=== PATIENT | male | born 1955 | race Caucasian/White ===

== ENCOUNTER 2020-09-11 15:46 | Inpatient (IN) | payer MEDICAID, SELFPAY ==
[2020-09-11] VITALS (17 sets, daily range): BP systolic 92–159; BP diastolic 65–102; PULSE 70–98; RESP 13–22; TEMP 36.7; O2SAT 90–98; BMI 32.5
--- NOTE | 2020-09-11 16:00 | ECG_ITS ---
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
--- NOTE | 2020-09-11 16:20 | ECG_ITS ---
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 Measurements Intervals [place] Rate: 75 P: 55 SC: 157 QRS: 48 QRSD: 109 T: 55 QT: 386 QTc: 432 Interpretive Statements SINUS RHYTHM WITH SINUS ARRHYTHMIA MODERATE ST DEPRESSION [0.05+ mV ST DEPRESSION] No previous ECG available for comparison Electronically Signed On 09-24-2020 9:40:08 CDT by Anabel Rhoades M.D. [email or web address] [email or web address] [email or web address] [id number] f
[2020-09-11 17:06] LABS: Basophils % 0.4 %; Eosinophils % 0.2 %; Hematocrit 42.4 % (42.0-52.0); Hemoglobin 14.7 g/dL (11.7-16.6); Lymphocytes # 1.1 10^3/uL (0.8-4.8); Lymphocytes % 9.8 %; Mean Corpuscular HGB Conc 34.7 g/dL (30.0-36.0); Mean Corpuscular Volume 86.5 fL (80-94); Mean Platelet Volume 10.1 fL (7.4-10.4); Monocytes # 0.4 10^3/uL (0.2-0.9); Neutrophils # 9.13 10^3/uL (1.8-7.7); Neutrophils % 85.2 %; Nucleated Red Blood Cells % 0 %; Platelet Count 197 10^3/cmm (130-400); Red Cell Distribution Width 12.2 % (12.1-15.1); White Blood Count 10.7 10^3/uL (4.0-10.0)
--- NOTE | 2020-09-11 17:13 | ED_ITS ---
HPI - Chest Pain General: Chief Complaint: Chest Pain Stated Complaint: CP, N/V, OVERHEATED Time Seen by Provider: 09/11/20 17:01 History of Present Illness: HPI narrative: 65-year-old male presents emergency room claiming bilateral chest upper chest pain radiating into his arms with nausea and vomiting and some shortness of breath began this afternoon about 4 to 5 hours ago he was moving some heavy furniture. Nausea and shortness of breath the past but he still has the chest discomfort. His initial EKG shows ST depression in V2 3 and aVF very subtle ST elevation in 1 and 2. EKG was sent to Dr. Aguilar who is on-call he did not feel it represented a STEMI. When I encountered the patient a repeat EKG was done he was still having chest discomfort still had similar EKG changes. He has no known history of heart disease he is not a smoker and is not diabetic he is hypertensive at this time but has no known history of hypertension however he readily admits he is avoided medical evaluation in the past. He has not had any formal cardiac evaluation in the past. MD complaint: chest pain and chest heaviness Onset (ago): hour(s) Timing of current episode: episodic Prior episodes: Yes Onset: during exertion Pain location: left chest and right chest Pain radiation: right arm, left arm, left shoulder and right shoulder Severity: moderate Quality: tightness and heaviness Relieving factors: rest Exacerbating factors: nothing Associated symptoms: Reports diaphoresis, dyspnea, nausea and vomiting; Deny abdominal pain, fever(s), leg edema, palpitations, sense of impending doom or syncope Treatment prior to arrival: none Review of Systems Const: Reports: diaphoresis; Denies: fever(s) ENMT: Denies: throat pain, ear or mastoid pain, nasal discharge or nasal congestion Card: Denies: palpitations or syncope Resp: Reports: dyspnea GI: Reports: nausea and vomiting; Denies: abdominal pain : Denies: flank pain, dysuria, urinary frequency or urinary urgency Skin/Breast: Denies: rash or pruritus Physical Exam Const: COMMON NORMALS: no acute distress GENERAL APPEARANCE: cooperative and comfortable ORIENTATION/CONSCIOUSNESS: Yes awake, Yes oriented to person, Yes oriented to place and Yes oriented to time HENMT: COMMON NORMALS: normocephalic, atraumatic, hearing grossly normal bilaterally, external ears normal, EAC's normal, TM's normal bilaterally, Normal nasal mucous membranes and turbinates present, moist oral mucous membranes and oropharynx normal HEAD & SCALP: normocephalic and atraumatic NOSE: Normal nasal mucous membranes and turbinates present EXTERNAL EAR: Yes external ears normal EXTERNAL AUDITORY CANAL: EAC's normal TYMPANIC MEMBRANE: TM's normal bilaterally Eye: COMMON NORMALS: Equal, round and reactive pupils present, EOMs intact bilaterally, conjunctivae normal and no scleral icterus CONJUNCTIVA: Yes conjunctivae normal PUPIL: Yes Equal, round and reactive pupils present Neck/C-Spine: COMMON NORMALS: full ROM, no lymphadenopathy, supple and no JVD Lymph: LYMPHATIC: no lymphadenopathy noted and no lymphedema noted Resp: COMMON NORMALS: normal respiratory effort, No retractions, No use of accessory muscles and clear to auscultation bilaterally AUSCULTATION: clear to auscultation bilaterally Cardio: COMMON NORMALS: no JVD, regular rate, regular rhythm and No murmurs pr esent (Cardio) RATE: regular rate RHYTHM: regular rhythm GI: COMMON NORMALS: Soft to palpation and No hepatosplenomegaly present AUSCULTATION: Yes normoactive bowel sounds PALPATION: Yes Soft to palpation, No Tenderness to palpation present (GI), No Guarding due to palpation present (GI) and Yes No hepatosplenomegaly present Extremity: COMMON NORMALS: normal to inspection, capillary refill normal, no clubbing, cyanosis or edema, no calf tenderness and no pedal edema Neuro: SENSORIUM/ORIENTATION: Yes oriented to person, Yes oriented to place and Yes oriented to time Skin: COMMON NORMALS: no rashes or lesions noted GENERAL SKIN EXAM: no rashes or lesions noted Course Vital Signs: Vital signs: Vital Signs Temperature 98.1 F 09/12/20 15:00 Pulse Rate 84 09/12/20 15:00 Respiratory Rate 16 09/12/20 15:00 Blood Pressure 130/80 09/12/20 15:00 Pulse Oximetry 93 09/12/20 15:00 MDM - Chest Pain MDM Narrative: Medical decision making narrative: Depression in the inferior and lateral leads with questionable ST elevation in V1 and V2. Patient continues to have uncontrolled pain despite nitroglycerin and morphine and aspirin. Discussed Dr. Aguilar again reviewed EKGs as they became available since the patient has continued. He decided to go ahead and take him straight to the [facility] To[facility]. At this point he would be classified as an unstable N STEMI. He was given Lovenox heparin and Plavix. Proceeded directly to [facility] To[facility] from the ER. Lab Data: Labs: Lab Results 09/11/20 09/11/20 09/11/20 Range/Units 16:55 16:55 16:55 WBC 10.7 H (4.0-10.0) 10^3/ uL RBC 4.90 (4.1-5.3) 10^6/u L Hgb 14.7 (11.7-16.6) g/dL Hct 42.4 (42.0-52.0) % MCV 86.5 (80-94) fL MCH 30.0 (28.0-34.0) pg MCHC 34.7 (30.0-36.0) g/dL RDW 12.2 (12.1-15.1) % Plt Count 197 (130-400) 10^3/c mm MPV 10.1 (7.4-10.4) fL Neut % (Auto) 85.2 % Lymph % (Auto) 9.8 % [place] % (Auto) 4.0 % Eos % (Auto) 0.2 % Baso % (Auto) 0.4 % Neut # (Auto) 9.13 H (1.8-7.7) 10^3/u L Lymph # (Auto) 1.1 (0.8-4.8) 10^3/u L [place] # (Auto) 0.4 (0.2-0.9) 10^3/u L Eos # (Auto) 0.0 (0.0-0.8) 10^3/u L Baso # (Auto) 0.0 (0.0-0.1) 10^3/u L Nucleated RBC % (a uto) 0 % Nucleated RBCs # 0.0 /100WBC PT (12.1-14.9) SECO NDS INR (0.8-1.2) APTT (23.9-36.7) SECO NDS Fibrinogen (174-498) mg/dL Sodium 142 (136-145) mmol/L Potassium 4.1 (3.5-5.1) mmol/L Chloride 102 (98-107) mmol/L Carbon Dioxide 24 (22-29) mmol/L Anion Gap 20.1 H (5-19) BUN 22 (8-23) mg/dL Creatinine 1.1 (0.7-1.2) mg/dL GFR Calculation 67.4 L (90-130) mL/min Glucose 131 H (65-115) mg/dL Calculated Osmolal ity 299 H (285-295) mOsm/k g Calcium 9.3 (8.5-10.5) mg/dL Magnesium 2.1 (1.7-2.3) mg/dL Total Bilirubin 0.8 (0.15-1.2) mg/dL AST 16 (0-40) U/L ALT 18 (0-41) U/L Alkaline Phosphata se 95 (40-130) IU/L Troponin T Baselin e 67 H (0-15) ng/L Troponin T 120 Min [place] (0-15) ng/L Delta Troponin T (0-10) ABS# Total Protein 7.6 (6.6-8.7) g/dL Albumin 4.7 (3.5-5.2) g/dL Globulin 2.9 (1.3-4.6) g/dL 09/11/20 09/11/20 Range/Units 19:00 19:06 WBC (4.0-10.0) 10^3/ uL RBC (4.1-5.3) 10^6/u L Hgb (11.7-16.6) g/dL Hct (42.0-52.0) % MCV (80-94) fL MCH (28.0-34.0) pg MCHC (30.0-36.0) g/dL RDW (12.1-15.1) % Plt Count 197 (130-400) 10^3/c mm MPV (7.4-10.4) fL Neut % (Auto) % Lymph % (Auto) % [place] % (Auto) % Eos % (Auto) % Baso % (Auto) % Neut # (Auto) (1.8-7.7) 10^3/u L Lymph # (Auto) (0.8-4.8) 10^3/u L [place] # (Auto) (0.2-0.9) 10^3/u L Eos # (Auto) (0.0-0.8) 10^3/u L Baso # (Auto) (0.0-0.1) 10^3/u L Nucleated RBC % (a uto) % Nucleated RBCs # /100WBC PT 15.00 H (12.1-14.9) SECO NDS INR 1.15 (0.8-1.2) APTT 161.1 H* (23.9-36.7) SECO NDS Fibrinogen 372 (174-498) mg/dL Sodium (136-145) mmol/L Potassium (3.5-5.1) mmol/L Chloride (98-107) mmol/L Carbon Dioxide (22-29) mmol/L Anion Gap (5-19) BUN (8-23) mg/dL Creatinine (0.7-1.2) mg/dL GFR Calculation (90-130) mL/min Glucose (65-115) mg/dL Calculated Osmolal ity (285-295) mOsm/k g Calcium (8.5-10.5) mg/dL Magnesium (1.7-2.3) mg/dL Total Bilirubin (0.15-1.2) mg/dL AST (0-40) U/L ALT (0-41) U/L Alkaline Phosphata se (40-130) IU/L Troponin T Baselin e (0-15) ng/L Troponin T 120 Min [place] 217.5 H (0-15) ng/L Delta Troponin T 150.5 H* (0-10) ABS# Total Protein (6.6-8.7) g/dL Albumin (3.5-5.2) g/dL Globulin (1.3-4.6) g/dL Discharge Plan Discharge Patient Disposition: Admitted As Inpatient Admit Provider: Mihai Au Clinical Impression: Non-ST elevation RI (NSTEMI) Condition: Stable Coding Level of Care Code ED Manager Front Office for Mannieg Fwd Exam Comprehensive
[2020-09-11] MEDS: aspirin 81 mg Chew Tablet 324 MG PO (17:25)
[2020-09-11] MEDS: nitroglycerin 1 gm/inch oint Pkt 1 INCH TOPICAL (17:25)
[2020-09-11 17:44] LABS: Troponin(5th) Baseline 67 ng/L (0-15)
[2020-09-11 17:48] LABS: Alanine Aminotransferase 18 U/L (0-41); Albumin Level 4.7 g/dL (3.5-5.2); Alkaline Phosphatase 95 IU/L (40-130); Anion Gap 20.1 (5-19); Aspartate Amino Transferase 16 U/L (0-40); Blood Urea Nitrogen 22 mg/dL (8-23); Calcium 9.3 mg/dL (8.5-10.5); Carbon Dioxide 24 mmol/L (22-29); Chloride 102 mmol/L (98-107); Globulin 2.9 g/dL (1.3-4.6); Glomerular Filtration Rate 67.4 mL/min (90-130); Glucose 131 mg/dL (65-115); Magnesium 2.1 mg/dL (1.7-2.3); Osmolality Calculated 299 mOsm/kg (285-295); Potassium 4.1 mmol/L (3.5-5.1); Sodium 142 mmol/L (136-145); Total Bilirubin 0.8 mg/dL (0.15-1.2); Total Protein 7.6 g/dL (6.6-8.7)
--- NOTE | 2020-09-11 18:21 | ECG_ITS ---
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1955 Requested By: Jaylen Linda Order Number: [id number] Reading MD: SYL CABRERA Measurements Intervals [place] Rate: 82 P: 55 NC: 155 QRS: 29 QRSD: 92 T: 0 QT: 383 QTc: 447 Interpretive Statements SINUS RHYTHM WITH OCCASIONAL VENTRICULAR PREMATURE COMPLEXES NONSPECIFIC ST & T-WAVE ABNORMALITY Compared to ECG 09/11/2020 17:00:06 Ventricular premature complex(es) now present T-wave abnormality now present Sinus arrhythmia no longer present ST (T wave) deviation no longer present Electronically Signed On 09-12-2020 20:31:33 CDT by SYL CABRERA [email or web address]/store/[id number] f
[2020-09-11] MEDS: ondansetron 2 mg/ML SDV 2 mL 4 MG IVP (18:33)
[2020-09-11] MEDS: clopidogrel 300 mg Tablet 600 MG PO (18:33)
[2020-09-11] MEDS: heparin 5,000 unit/mL INJ 1 mL 4000 UNIT IVP (18:35)
[2020-09-11] MEDS: morphine 4 mg/mL SDV 1 mL 2 MG IVP ×3 (18:38→18:58)
[2020-09-11] MEDS: nitroglycerin drip 50 MG/250 ML PREMIX IV (18:39)
--- NOTE | 2020-09-11 19:40 | PC.NURSE ---
during shift change report, vo obtained from Dr Drummond to call for recyclable products sorter. Protocol followed
--- NOTE | 2020-09-11 19:40 | PM.HP ---
Providers/Chief Complaint Admitting Physician: Mihai Au MD Chief Complaint: CP, N/V, OVERHEATED History of Present Illness Logan Lee is a 65 year old male presented with chest pain for the last 2 hours rated 10 out of 10 after nitroglycerin and couple of rounds of morphine pain went down to 5 but did not get better. There is mild inferolateral ST depression and poor R wave progression in the anterior leads, since patient chest pain did not resolve and his first troponin is 65+ because of the fact it is worsening with the time we decided to take him to the Facilities Maintenance Engineer for acute coronary syndrome with possible non-STEMI unstable. Patient does not like to go to doctors according to him for the last 1 year he was having chest pain upon mild to moderate exertion especially when he walks in the winter. It is the reason recently he has moved to rest plane so that he can get rid of this chest pain. He believes that it was due to cold in his chest. He has remote history of smoking he has family history of coronary artery disease in his dad and dyslipidemia in the rest of the family. Today he was moving to his new apartment when started feeling chest pain. Medications/Allergies Home Medications Medication Instructions Recorded Confirmed Last Taken Type cetirizine [Zyrtec] 10 mg PO DAILY PRN 09/11/20 09/11/20 Unknown History multivitamin 1 tab PO DAILY 09/11/20 09/11/20 09/10/20 History Allergies Allergy/AdvReac Type Severity Reaction Status Date / Time No Known Allergies Allergy Unverified 09/11/20 17:29 Vitals/I&O/Wt Last Vital Signs Temp 98.0 F 09/11/20 16:12 Pulse 82 09/11/20 18:06 Resp 16 09/11/20 18:58 BP 137/96 09/11/20 18:06 Pulse Ox 98 09/11/20 18:06 09/11/20 09/11/20 09/11/20 06:59 14:59 22:59 Intake Total 0.425 / 0.425 Balance 0.425 / 0.425 Weight last 48 hrs Weight 220 lb Physical Exam Narrative: EXAM NARRATIVE: GENERAL: Patient is alert, awake and oriented x3. NECK: No jugular vein distension. HEENT: No cyanosis. No icterus. No pallor. HEART: Regular S1 and S2. No murmur, rub or gallop. LUNGS: Clear to auscultate bilaterally. ABDOMEN: Soft, nontender and nondistended. Positive bowel sounds. No guarding, rebound or tenderness. CENTRAL NERVOUS SYSTEM: Grossly nonfocal. EXTREMITIES: Lower extremities without edema bilaterally. Data : 09/11/20 16:55 09/11/20 16:55 EKG 1: I personally reviewed and interpreted this EKG as follows: My Interpretation: Sinus rhythm no QT QTc interval. Mild inferolateral ST depression poor R wave progression normal HI , no significant ST elevation A&P Assessment and plan (1) Non-ST elevation UT (NSTEMI): Patient story is most consistent with acute coronary syndrome with unstable non-ST elevation UT, he has been loaded with Plavix and given heparin in the ER. He has also been given aspirin. We will proceed with left heart cath/PCI if indicated. Patient does not have any contraindication for dual antiplatelet therapy. Patient has been explained all risk benefit and alternative for the procedure he understand the risk for major minor surgery urgent emergent bypass major minor bleed stroke and arrhythmia. He would like to proceed with it. Status: Acute Attestations Medical Necessity Statement*: Patient will be outpatient in bed for observation. Coding Level of Care Code New Pt Acute Manager Transfer for Mannieg Fwally Patient Type New History Detailed Exam Detailed Medical Decision Making Moderate Complexity Diagnoses Non-ST elevation UT (NSTEMI) I21.4
--- NOTE | 2020-09-11 19:44 | XACV_ITS ---
Exam Room: [facility] Ht: 173 cm Wt: 100 kg BSA: 2.22 m2 Gender: Male : 1955 Exam Priority: Routine Procedure(s): Procedure Description: Diagnostic procedure Procedure Description: PCI procedure Procedure Description: Drug Eluting Coronary Stent Procedure Description: PTCA Procedure Description: Miscellaneous Procedure Description: ACT Procedure Description: Coronary Angiography Diagnostic Cath Status: Urgent Diagnostic Findings * Left Main has no disease. * Circumflex has no disease. * Proximal Left Anterior Descending to Mid Left Anterior Descending: total occlusion, UDAY: 0 flow. * Mid Right Coronary Artery: subtotal occlusion, UDAY: 3 flow. * 1st Diagonal: total occlusion, UDAY: 0 flow. * Coronary angiography shows left dominance. PCI Status: Urgent PCI Indication: NSTE - ACS Interventional Findings * 65-year-old male presented with chest pain for the last few hours when pain became unbearable while moving the boxes for shifting apartment he decided to come to the ER. Due to charactiristics of the chest pain and EKG suggestive of acute coronary syndrome with unstable non-ST elevation [place] patient was taken to [facility] he was noted to have nondominant highly calcified 90 subtotally treated with balloon angioplasty without significant improvement. LAD was noted to be completely occluded which appeared to be calcified lesion possible acute on chronic occlusion. After somewhat difficulty we were able to cross the lesion. It was noted that there is bifurcating proximal to mid LAD lesion. Diagonal is moderate size and caliber vessel. 2 wire technique was performed. After ballooning diag and LAD, we placed proximal to mid LAD stent jailing the diagonal branch. Wire was taken out from underneath the stent and re wired into the diagonal. 2.0 balloon AB trek was used to dilate the ostium of the stent and diagonal branch. LAD stent was postdilated with noncompliant balloon then. Excellent angiographic result with UDAY-3 flow was achieved in both vessels.. * Proximal Left Anterior Descending to Mid Left Anterior Descendin% stenosis treated with a AB MINI TREK 2.00X12 RX BALLOON, MDLeila R DARRYN 3.0X22 LAKHWINDER, and MDT DONNA EUPHORA RX [id number] BALLOON. 0% residual stenosis, UDAY: 3 flow. * Mid Right Coronary Artery: 99% stenosis treated with a AB MINI TREK 2.00X12 RX BALLOON. 80% residual stenosis, UDAY: 3 flow. * 1st Diagonal: 100% stenosis treated with a AB MINI TREK 2.00X8 RX BALLOON. 0% residual stenosis, UDAY: 3 flow. Conclusions 1. There is total occlusion coronary artery disease with two vessel disease. 2. Proximal Left Anterior Descending to Mid Left Anterior Descending was treated with a Balloon, Drug Eluting Stent, and Balloon. 3. Mid Right Coronary Artery was treated with a Balloon. 4. 1st Diagonal was treated with a Balloon. Recommendations * 1-Return to inpatient for close monitoring and routine cath care2-Risk factor modification for secondary prevention3-Statin and aspirin 81 mg life--long, if tolerated4-Patient was pre-loaded with 600 mg of Plavix, continue Plavix 75mg p.o. daily for at least one year. We will assess at the end of one year again to continue if further or not5-Continue optimal medical management6-Follow up with Dr. Au in four weeks and your primary care in 10 days. Interventional RX Recommendation: PCI w/o planned CABG Diagnostic RX Recommendation: PCI w/o planned CABG Pressures Phase:Rest AO : 144 / 98 ( 118 ) @ 6:57:00 PM 127 / 98 ( 113 ) @ 6:57:00 PM 123 / 94 ( 108 ) @ 6:58:00 PM 129 / 93 ( 111 ) @ 6:59:00 PM 124 / 92 ( 109 ) @ 9:07:31 AM 112 / 89 ( 102 ) @ 9:07:31 AM 79 / 57 ( 64 ) @ 9:07:31 AM 105 / 79 ( 93 ) @ 9:07:31 AM 153 / 112 ( 129 ) @ 9:07:31 AM 131 / 90 ( 107 ) @ 9:07:31 AM 123 / 91 ( 106 ) @ 9:07:31 AM 113 / 90 ( 103 ) @ 9:07:31 AM 130 / 93 ( 111 ) @ 9:07:31 AM Clinical Evaluation EBL: 5mL-10mL Procedural Details Pre-Procedure Time Out. Identified patient by full name and date of as verbalized by the patient/guarantor. Does the consent match the physician's order: Yes. Accurate & Complete Informed Consent: Yes. Inpatient/Outpatient History & Physical on Chart: Yes. If H&P is completed, is and addenduem needed: No; If yes, is the addendum complete: N/A. Visualize and Verify Site with Patient/Guarantor: N/A. Relevant Radiology Images available: Yes. Pre-op teaching completed and patient verbalized understanding. The risks, benefits, and alternatives of sedation and/or procedure were discussed by physician. The patient agrees to continue. Procedure started. [facility] Clinical Fraility Score: 4: Vulnerable. [facility] Indications: ACS > 24 hours. Chest Pain Symptom Assessment: Typical Angina Symptoms. Correct patient, site and procedure confirmed by cath team. Current diagnosis: NSTEMI. PERRLA. Strong, equal hand net developer programmer bilaterally. Lungs clear x 5 lobes. IV Site on Arrival: 18 gauge in the left anticubital. IV Fluids: 0.9% NaCl at KVO. 0 mL infused prior to dental laboratory technology teacher. Oxygen started at 2liters/min via nasal canula. right groin was prepped with chloroprep then draped in the usual sterile fashion. right radial was prepped with chloroprep then draped in the usual sterile fashion. Baseline sample Acquired. HR: 94 BPM. Physician arrived. Patient's family unavailable. Current Diagnosis : NSTEMI. Physician scrubbed in. Correct Patient: Yes; Correct Procedure: Yes; Correct Site: Yes; Correct Patient Position: Yes; Correct Supplies: Yes; Dried Flammable Prep: Yes; Blood Products Available: N/A;. Lidocaine 1% infiltrated to the right radial. Arterial access obtained. A 5 tunisian TIG catheter in over wire. Multiple views taken of left coronary artery. Catheter redirected to the RCA. Multiple views taken of right coronary artery. Catheter removed over the exchange wire. 6 tunisian JR 4 guide catheter was inserted over the wire. [place] guidewire was advanced through the guide catheter to lesion in the mid RCA. Lab called with critical Troponin results. 2Hour: 217.5 Delta: 150.5. Inflation number : 1 A AB MINI TREK 2.00X12 RX BALLOON was prepped and advanced across the Mid RCA , then inflated to 16 ALICE for 0:24 seconds. Inflation number: 2 The AB MINI TREK 2.00X12 RX BALLOON was reinflated across the Mid RCA, to 14 ALICE for 0:09 seconds. Results checked. Balloon and wire out. Guide catheter out. 6 tunisian XB 3.5 guide catheter was inserted over the wire. [place] guidewire was advanced through the guide catheter to lesion in the prox LAD. Inflation number: 1 The AB MINI TREK 2.00X12 RX BALLOON was reinflated across the Prox LAD, to 15 ALICE for 0:09 seconds. Balloon out. [place] guidewire was advanced through the guide catheter to lesion in the diaganol. Inflation Number : 2 A MDT R DARRYN 3.0X22 LAKHWINDER -Lot Number# [id number] was prepped and advanced across the Prox LAD. The stent was deployed at 18 ALICE for 0:30 seconds. Stent balloon out over wire. 2.0x12 balloon inserted OTW to the Diag. Balloon out. Inflation number : 1 A AB MINI TREK 2.00X8 RX BALLOON was prepped and advanced across the 1st Diag , then inflated to 12 ALICE for 0:17 seconds. Inflation number: 2 The AB MINI TREK 2.00X8 RX BALLOON was reinflated across the 1st Diag, to 14 ALICE for 0:09 seconds. Balloon out. Inflation number : 3 A MDT NC EUPHORA RX [id number] BALLOON was prepped and advanced across the Prox LAD , then inflated to 12 ALICE for 0:25 seconds. Inflation number: 4 The MDT NC EUPHORA RX [id number] BALLOON was reinflated across the Prox LAD, to 14 ALICE for 0:16 seconds. Balloon out. Wires out. Results checked. Guide catheter out. ACT drawn. Results 177 seconds. Therapeutic limits - pre-heparin administration 90-150 seconds and monitoring heparin during a vascular procedure >250 seconds. Physician scrubbed out. TR band placed. Hemostasis obtained. A TR Band was successful obtaining hemostatsis at the Right Radial artery insertion site. Post Procedure: Pulses reassessed and unchanged. PERRLA. Strong, equal hand net developer programmer bilaterally. No VTE prophylaxis required. Medication's Wasted: Lidocaine 1% = 15 mL. Vital chart was stopped. Medication's Wasted: Nitro = 49.6 mg. Medication's Wasted: Heparin = 1000 units. Medication's Wasted: Other = Fentanyl 50 mcg. Total IV fluids: 50 mL. Contrast type used: Omnipaque 300 mgI/mL, 500 mL bottle. Complications: None. Estimated blood loss: 5mL-10mL. Procedure completed. Patient transferred by wheelchair to 1st floor. Access Site Site: Right Radial artery Sheath Size: 6 Fr Hemostasis Method: TR Band Hemostasis Success: Successful Procedure Medications Start: 7:48 PM Stop: 7:48 PM Medication: Fentanyl Amount: 50 mcg Route: I.V. Start: 7:54 PM Stop: 7:54 PM Medication: Nitrogylcerin Amount: 200 mcg Route: I.A. Start: 8:02 PM Stop: 8:02 PM Medication: Lopressor (metoprolol) Amount: 5 mg Route: I.V. Start: 8:04 PM Stop: 8:04 PM Medication: Heparin Amount: 5000 units Route: I.V. Start: 8:04 PM Stop: 8:04 PM Medication: Fentanyl Amount: 25 mcg Route: I.V. Start: 8:05 PM Stop: 8:05 PM Medication: Versed Amount: 1 mg Route: I.V. Start: 8:10 PM Stop: 8:10 PM Medication: Lopressor (metoprolol) Amount: 5 mg Route: I.V. Start: 8:14 PM Stop: 8:14 PM Medication: Versed 1 mg and Fentanyl 25 mcg Amount: 1 Route: I.V. Start: 8:43 PM Stop: 8:43 PM Medication: Fentanyl Amount: 25 mcg Route: I.V. Start: 8:49 PM Stop: 8:49 PM Medication: Fentanyl Amount: 25 mcg Route: I.V. Start: 8:52 PM Stop: 8:52 PM Medication: Aggrastat 12.5 mg/250 mL Amount: 50 ml Route: I.V. bolus Start: 8:52 PM Stop: 8:52 PM Medication: Aggrastat 12.5 mg/250 mL Amount: 18 ml/hr Route: I.V. drip Start: 9:13 PM Stop: 9:13 PM Medication: Heparin Amount: 2000 units Route: I.V. I, the attending physician, have reviewed and verified all procedure medications. Yes, all medications given per verbal order History/Risk Factors Hypertension: No Dyslipidemia: No Peripheral Arterial Disease (PAD): No Myocardial Infarction (WI): No Obesity: No Renal Disease: No Prior Interventions PCI: No CABG: No Valve Surgery: No Report Signatures Finalized by Mihai Au MD on 09/24/2020 08:19 PM
[2020-09-11 20:02] LABS: INR 1.15 (0.8-1.2)
[2020-09-11 20:03] LABS: Fibrinogen 372 mg/dL (174-498)
[2020-09-11 20:13] LABS: Troponin 5 2HR 217.5 ng/L (0-15); Troponin 5 2HR Delta 150.5 ABS# (0-10)
[2020-09-11 21:22] LABS: Partial Thromboplastin Time 161.1 SECONDS (23.9-36.7)
[2020-09-11 21:40] LABS: Platelet Count 197 10^3/cmm (130-400)
--- NOTE | 2020-09-11 22:06 | PC.NURSE ---
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 Ordered to shut off at 2300. Patient is alert and oriented, but drowsy. VSS. Right wrist TR band WNL. Will monitor frequently.
--- NOTE | 2020-09-11 22:21 | ECG_ITS ---
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
--- NOTE | 2020-09-11 23:16 | PC.NURSE ---
Aggrastat shut off at 2300 per order.
--- NOTE | 2020-09-11 23:17 | PC.NURSE ---
Nitro drip was not running upon arrival to the floor.
--- NOTE | 2020-09-11 23:51 | PC.NURSE ---
Addendum entered by iHlary Ku RN 09/12/20 00:07: Dr. Au ordered NS at 75 ml/hr x 1 bag. Original Note: Dr. Au notified of patient not having any IV fluids ordered or running.
[2020-09-12] VITALS (37 sets, daily range): BP systolic 89–130; BP diastolic 69–98; PULSE 77–96; RESP 16–20; TEMP 36.4–36.7; O2SAT 93–96
[2020-09-12] MEDS: sodium chloride 0.9% 1,000 ML 75 ML IV (00:34)
--- NOTE | 2020-09-12 02:00 | PC.NURSE ---
TR band removed from right wrist at 0200. Began removing air at 2300. VSS. Dressing applied to right wrist. Radial pulse present, no bleeding or hematoma noted, skin color and temp WNL. Patient educated on post-cath activity restrictions and care and verbalized understanding. Will monitor.
--- NOTE | 2020-09-12 03:21 | PC.NURSE ---
Right wrist WNL. VSS. Patient does not c/o any pain or SOB.
[2020-09-12 05:16] LABS: Basophils % 0.1 %; Hematocrit 42.1 % (42.0-52.0); Hemoglobin 13.6 g/dL (11.7-16.6); Lymphocytes % 9.2 %; Mean Corpuscular HGB Conc 32.3 g/dL (30.0-36.0); Mean Corpuscular Hemoglobin 29.2 pg (28.0-34.0); Mean Corpuscular Volume 90.5 fL (80-94); Mean Platelet Volume 10.3 fL (7.4-10.4); Monocytes # 0.6 10^3/uL (0.2-0.9); Monocytes % 5.3 %; Neutrophils # 8.75 10^3/uL (1.8-7.7); Nucleated Red Blood Cells % 0 %; Platelet Count 170 10^3/cmm (130-400); Red Blood Count 4.65 10^6/uL (4.1-5.3); Red Cell Distribution Width 12.8 % (12.1-15.1); White Blood Count 10.3 10^3/uL (4.0-10.0)
[2020-09-12 06:04] LABS: Alanine Aminotransferase 37 U/L (0-41); Albumin Level 3.9 g/dL (3.5-5.2); Alkaline Phosphatase 87 IU/L (40-130); Anion Gap 17.2 (5-19); Aspartate Amino Transferase 221 U/L (0-40); Blood Urea Nitrogen 21 mg/dL (8-23); Calcium 8.5 mg/dL (8.5-10.5); Carbon Dioxide 21 mmol/L (22-29); Chloride 104 mmol/L (98-107); Creatinine Clr Calc Pharmacy 108.6378; Globulin 2.7 g/dL (1.3-4.6); Glomerular Filtration Rate 97.3 mL/min (90-130); Glucose 152 mg/dL (65-115); Osmolality Calculated 292 mOsm/kg (285-295); Potassium 4.2 mmol/L (3.5-5.1); Sodium 138 mmol/L (136-145); Total Bilirubin 0.6 mg/dL (0.15-1.2); Total Protein 6.6 g/dL (6.6-8.7)
--- NOTE | 2020-09-12 07:25 | PC.NURSE ---
Bedside report completed with MARIELY Richard. Observed Right wrist, dressing is clean, dry, and intact. No hematoma noted. Assessment completed and documented. Patient unhooked from tele and up to use restroom at this time.
[2020-09-12] MEDS: clopidogrel 75 mg Tablet PO (09:23)
--- NOTE | 2020-09-12 10:01 | PC.SOCIAL ---
No needs from CM patient is on RA and does not wear O2 at home.
--- NOTE | 2020-09-12 12:00 | PM.PN ---
Vitals/I&O/Wt Last Vital Signs Temp 97.8 F 09/12/20 10:32 Pulse 85 09/12/20 10:32 Resp 16 09/12/20 10:32 BP 119/77 09/12/20 10:32 Pulse Ox 96 09/12/20 10:32 09/11/20 09/12/20 09/12/20 22:59 06:59 14:59 Intake Total 8.875 / 8.875 100 / 108.875 500 / 500 Balance 8.875 / 8.875 100 / 108.875 500 / 500 Weight last 48 hrs Weight 220 lb Physical Exam Narrative: EXAM NARRATIVE: GENERAL: Patient is alert, awake and oriented x3. NECK: No jugular vein distension. HEENT: No cyanosis. No icterus. No pallor. HEART: Regular S1 and S2. No murmur, rub or gallop. LUNGS: Clear to auscultate bilaterally. ABDOMEN: Soft, nontender and nondistended. Positive bowel sounds. No guarding, rebound or tenderness. CENTRAL NERVOUS SYSTEM: Grossly nonfocal. EXTREMITIES: Lower extremities without edema bilaterally. Data : 09/12/20 04:27 09/12/20 04:27 A&P Assessment and plan (1) Non-ST elevation LA (NSTEMI): Underwent urgent angiogram due to unstable non-ST elevation LA. He was noted to have chronically occluded RCA with [id number] collateral he was also noted to have 100% occluded proximal large bifurcating occluded LAD which may was previously subtotally occluded and now completely occluded resulted in instability. Balloon angioplasty of RCA was performed due to [id number] collateral to improve the flow from antegrade. LAD was treated with balloon angioplasty and single drug-eluting stent postdilated with noncompliant balloon. Balloon angioplasty of jailed large diagonal almost parallel to the LAD was performed. Excellent angiographic result with UDAY-3 flow was achieved in both LAD and diagonal without any compromise. No overnight event. He is feeling much better. We will ask for echocardiogram to assess LV function. I will discontinue IV fluid now. I will add Coreg and lisinopril continue aspirin statin and Plavix. I have detailed discussion with the patient regarding compliance with the medicine especially with the Plavix for at least 2-year. Further plan will be advised as per progress of the patient after optimization of medicine most likely discharge tomorrow. Status: Acute (2) Cardiomyopathy: Ischemic cardiomyopathy we will ask for echocardiogram to assess LV function. Appear to be stable from a heart failure perspective. Appear to be euvolemic for now. Status: Acute Attestations Medical Necessity Statement*: Require continuation hospitalization for above defined care. Coding Level of Care Code Established Pt Acute Business Services Coordinator for Frankie Galevz Patient Type Established History Comprehensive Exam Comprehensive Medical Decision Making Moderate Complexity Diagnoses Non-ST elevation LA (NSTEMI) I21.4 Cardiomyopathy I42.9
--- NOTE | 2020-09-12 12:36 | USCV_ITS ---
Logan Lee Age: 65 Gender: M : 1955 Exam Date: 09/12/2020 13:20 Ordering Phys: Mihai Au MD ([email or web address]) Technologist: Exam Location: [facility] Indication: NSTEMI BP: 119 / 77 HR: 75 Rhythm: Sinus Technical Quality: MEASUREMENTS (Male / Female) Normal Values 2D ECHO LV Diastolic Diameter PLAX 3.5 cm 4.2 - 5.9 / 3.9 - 5.3 cm LV Systolic Diameter PLAX 2.8 cm IVS Diastolic Thickness 0.8 cm 0.6 - 1.0 / 0.6 - 0.9 cm IVS Systolic Thickness 1.0 cm LVPW Diastolic Thickness 0.9 cm 0.6 - 1.0 / 0.6 - 0.9 cm LVPW Systolic Thickness 1.0 cm LVOT Diameter 2.0 cm LV Ejection Fraction 2D Teich 22.4 % LA Diameter 3.5 cm FINDINGS Left Ventricle Moderately increased left ventricular cavity size. Severely decreased left ventricular systolic function. Left ventricular ejection fraction is estimated at 35 %. Mid to distal anterior septal and apical akinesis. Right Ventricle Right Atrium Left Atrium Mitral Valve Aortic Valve Tricuspid Valve Pulmonic Valve Pericardium Aorta CONCLUSIONS Limited echo 1-Moderately increased left ventricular cavity size. Severely decreased left ventricular systolic function. Left ventricular ejection fraction is estimated at 35 %. Mid to distal anterior septal and apical akinesis. 2-There is no pericardial effusion. 3-Please note that this is limited echo no hemodynamics was performed. Advised complete echo with full range of hemodynamics and assessment of the valves. No prior exam for comparison. Mihai Au MD (Electronically Signed) Final Date: 12 September 2020 15:38 S
[2020-09-12 12:38] LABS: Troponin T (5th) Once 5576 ng/L (0-15)
[2020-09-12] MEDS: carvedilol 3.125 mg Tablet PO (17:39)
[2020-09-12] MEDS: atorvastatin 40 mg Tablet PO (20:16)
[2020-09-12] MEDS: temazepam 15 mg Capsule PO (20:16)
[2020-09-13] VITALS (7 sets, daily range): BP systolic 100–122; BP diastolic 68–78; PULSE 86–97; RESP 16; TEMP 36.7; O2SAT 93–94
[2020-09-13] MEDS: lisinopril 2.5 mg Tablet PO (09:04)
[2020-09-13] MEDS: clopidogrel 75 mg Tablet PO (09:04)
[2020-09-13] MEDS: carvedilol 3.125 mg Tablet PO (09:04)
--- NOTE | 2020-09-13 13:17 | PM.DCS ---
Discharge Providers Date of Admission: 09/11/20 21:45 Date of Discharge: September 13, 2020 Attending Provider at Admission: Mihai Au MD Attending Provider at Discharge: Mihai Au MD Diagnoses at Discharge Discharge Diagnosis (1) Non-ST elevation TN (NSTEMI): Status: Acute (2) Cardiomyopathy: Status: Acute Reason for Visit Reason for Visit: CP, N/V, OVERHEATED Hospital Course Hospital Course 65-year-old male past medical history significant for hypertension hyperlipidemia presented with worsening of chest pain dynamic EKG changes taken to the [facility] Nurse Practitioner for unstable non-ST elevation TN he was noted to have 100% occluded LAD treated with drug-eluting stent and balloon angioplasty of the jailed diagonal branch which is as large as LAD. He was also noted to have distal chronic RCA occlusion with pqco-en-fcldy collaterals. Mid RCA had highly calcified lesion which were treated with balloon angioplasty. Echocardiogram revealed left ventricle ejection fraction around 35%. Patient was started on optimal medical regimen. Today he was doing fine from cardiovascular perspective denies any complaint. Will be discharged home to follow-up with Ms. Lynne Kumar cardiology nurse practitioner in [address] Au myself in 6 to 8 weeks. Patient has been given heart failure education. I will reassess LV function in 90 days if left ventricle function does not improve he may will be a candidate for ICD. Physical Exam Narrative: EXAM NARRATIVE: GENERAL: Patient is alert, awake and oriented x3. NECK: No jugular vein distension. HEENT: No cyanosis. No icterus. No pallor. HEART: Regular S1 and S2. No murmur, rub or gallop. LUNGS: Clear to auscultate bilaterally. ABDOMEN: Soft, nontender and nondistended. Positive bowel sounds. No guarding, rebound or tenderness. CENTRAL NERVOUS SYSTEM: Grossly nonfocal. EXTREMITIES: Lower extremities without edema bilaterally. Discharge Data Data Completed and Pending: Completed Studies During Hospitalization Category Date Time Status CV. 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 request for service Routin e Exams 09/11/20 19:44 Taken Vitals: Last Vital Signs Temp 98.1 F 09/13/20 12:00 Pulse 87 09/13/20 12:00 Resp 16 09/13/20 12:00 BP 100/68 09/13/20 12:00 Pulse Ox 94 09/13/20 12:00 Discharge Plan Discharge Patient Disposition: Home Condition: Stable Prescriptions: New atorvastatin 40 mg Tablet 40 mg PO BEDTIME Qty: 30 RF: 3 clopidogrel 75 mg Tablet 75 mg PO DAILY Qty: 90 RF: 4 carvedilol 3.125 mg Tablet 3.125 mg PO BID Qty: 60 RF: 3 lisinopril 2.5 mg Tablet 2.5 mg PO DAILY Qty: 30 RF: 4 Lasix 20 mg tablet 20 mg PO QAM Qty: 30 RF: 4 potassium chloride 20 mEq tablet extended release 10 meq PO DAILY Qty: 30 RF: 4 aspirin 81 mg tablet,chewable 81 mg PO DAILY Qty: 90 RF: 4 Continued multivitamin Tablet 1 tab PO DAILY RF: 0 Zyrtec 10 mg Tablet 10 mg PO DAILY PRN (Reason: Allergy Symptoms) RF: 0 Discharge Orders: Discharge Order (Routine); Ordered 09/13/20 Ordered By: Mihai Au Referrals: Mihai Au MD [Physician] - ([facility] will be calling to schedule a cardiology followup with Dr. Au to be seen in 4 to 6 weeks. If you don't hear from them bt Monday, please give them at call. Thank you) Lynne Kumar FNP [Nurse Practitioner] - 1 week ([facility] will be calling to schedule a post procedure followup with FAMILIA Chiang to be seen in 1 week. If you don't hear from them bt Monday, please give them at call. Thank you) Discharge Diet: Cardiac, Low Salt and Low Cholesterol Discharge Activity: Increase activity as tolerated Patient Instructions: Lisinopril (By mouth), Furosemide (By mouth), Potassium Chloride (By mouth), Aspirin (By mouth), Atorvastatin (By mouth), Carvedilol (By mouth), Left Heart Catheterization (DC), Opioid Safety Activity Restrictions/Additional Instructions: follow-up with Lynne Kumar cardiology nurse practitioner in 7 to 10 days. Follow-up with Dr. Au in 4 to 6 weeks. If you notice that you gain more than 3 pound in 2 conjunctive days take extra water pill and inform Dr. Au's office. Discharge Attestations Time Spent in Discharge Care*: greater than 30 min Specific Discharge Activities: educating patient Quality Metrics Clinical Quality Measures During this hospital stay, did patient experience: None Coding Level of Care Code New Pt Acute Chg FW DC note Patient Type New History Comprehensive Exam Comprehensive Medical Decision Making High Complexity Diagnoses Non-ST elevation TN (NSTEMI) I21.4 Cardiomyopathy I42.9
[2020-09-13] MEDS: FUROsemide 10 mg/mL SDV 2mL 20 MG IVP (13:48)
[2020-09-13] MEDS: potassium chloride ER 10 mEq Tablet PO (13:48)
--- NOTE | 2020-09-13 14:17 | PC.NURSE ---
Discharge instructions reviewed with patient. Verbalized an understanding. IVs removed tips intact. Patient escorted to door ambulatory where picked him up in a private vehicle.
== END 2020-09-13 14:17 | disposition home or self-care (01) | DRG 247 ==
LOC: ER 19:25 → CCL 19:40 → CSU 22:31
PROVIDERS: Nurse Practitioner Family; Admitting Provider Internal Medicine Cardiovascular Disease; Emergency Provider Family Medicine; Visit Provider Internal Medicine Cardiovascular Disease
PROC: 027034Z Dilation of Coronary Artery, One Artery with Drug-eluting Intraluminal Device, Percutaneous Approach (ICD-10-PCS; principal; 2020-09-11 18:00)
PROC: 027034Z Dilation of Coronary Artery, One Artery with Drug-eluting Intraluminal Device, Percutaneous Approach (ICD-10-PCS; 2020-09-11 18:00)
DX: I21.4 Non-ST elevation (NSTEMI) myocardial infarction (principal); I24.9 Acute ischemic heart disease, unspecified; Z87.891 Personal history of nicotine dependence; Z82.49 Family history of ischemic heart disease and other diseases of the circulatory system; I25.5 Ischemic cardiomyopathy; I10 Essential (primary) hypertension; E78.5 Hyperlipidemia, unspecified; I25.10 Atherosclerotic heart disease of native coronary artery without angina pectoris
CPT/HCPCS: 36415; 80053; 83735; 84484; 85025; 85049; 85347; 85384; 85610; 85730; 92920; 93005; 93308; 93454; 96374; 96375; 99285; C1725; C1769; C1874; C1887; C1894; C9600; J1644; J1940; J2250; J2270; J2405; J3010; J3246; J3490; J7030; Q9967

== ENCOUNTER → 2020-09-21 15:10 | Outpatient (BNVA) | payer MEDICAID, SELFPAY | PROVIDERS: Visit Provider Nurse Practitioner Family | DX: I25.119 Atherosclerotic heart disease of native coronary artery with unspecified angina pectoris (principal) | CPT/HCPCS: 80048 ==

== ENCOUNTER 2021-02-07 15:56 | Emergency (ER) | payer BC, MEDICAID, SELFPAY ==
--- NOTE | 2021-02-07 03:22 | XRR_ITS ---
PROCEDURE INFORMATION: Exam: XR Chest Exam date and time: 02/07/2021 3:22 AM Age: 65 years old Clinical indication: Cough and dyspnea and fever; Additional info: SOB cough fever TECHNIQUE: Imaging protocol: XR of the chest. Views: 1 view. Total images: 1 COMPARISON: No relevant prior studies available. FINDINGS: Lungs: Minimal discoid atelectasis left lung base and right mid lung. No other visible active interstitial or alveolar airspace disease. Pleural spaces: Unremarkable. No pleural effusion. No pneumothorax. Heart/Mediastinum: Cardiac structures and configuration within normal limits. Bones/joints: Unremarkable. XR/XR chest 1V portable [id number] IMPRESSION: Minimal discoid atelectasis left lung base and right mid lung.
[2021-02-07 16:06] VITALS: BP 132/80; PULSE 95; RESP 14; TEMP 37.2; O2SAT 92; BMI 31.5
[2021-02-07 19:34] LABS: Basophils % 0.2 %; Hematocrit 42.5 % (42.0-52.0); Hemoglobin 14.5 g/dL (11.7-16.6); Lymphocytes # 0.6 10^3/uL (0.8-4.8); Lymphocytes % 10.2 %; Mean Corpuscular HGB Conc 34.1 g/dL (30.0-36.0); Mean Corpuscular Hemoglobin 29.6 pg (28.0-34.0); Mean Corpuscular Volume 86.7 fl (80-94); Mean Platelet Volume 10.3 fL (7.4-10.4); Monocytes # 0.2 10^3/uL (0.2-0.9); Monocytes % 3.4 %; Neutrophils # 4.99 10^3/uL (1.8-7.7); Neutrophils % 85.9 %; Nucleated Red Blood Cells % 0 %; Platelet Count 146 10^3/cmm (130-400); Red Cell Distribution Width 11.7 % (12.1-15.1); White Blood Count 5.8 10^3/uL (4.0-10.0)
[2021-02-07 19:49] LABS: Alanine Aminotransferase 19 U/L (0-41); Albumin Level 4.3 g/dL (3.5-5.2); Alkaline Phosphatase 64 IU/L (40-130); Anion Gap 19.2 (5-19); Aspartate Amino Transferase 25 U/L (0-40); Blood Urea Nitrogen 33 mg/dL (8-23); Calcium 8.5 mg/dL (8.5-10.5); Carbon Dioxide 24 mmol/L (22-29); Chloride 97 mmol/L (98-107); Globulin 3.4 g/dL (1.3-4.6); Glomerular Filtration Rate 75.2 mL/min (90-130); Glucose 114 mg/dL (65-115); Lipase 53 U/L (13-60); Osmolality Calculated 290 mOsm/kg (285-295); Potassium 4.2 mmol/L (3.5-5.1); Sodium 136 mmol/L (136-145); Total Bilirubin 0.6 mg/dL (0.15-1.2); Total Protein 7.7 g/dL (6.6-8.7)
[2021-02-07] MEDS: sodium chloride 0.9% 1,000 ML 999 ML IV (23:50)
[2021-02-08] VITALS: BP 148/83; PULSE 89; RESP 16; O2SAT 99
[2021-02-08 00:59] LABS: Adenovirus Not Detected (NOT DETECT); Chlamydia Pneumoniae Not Detected (NOT DETECT); Coronavirus 229E,HKU1,NL63,OC4 Not Detected (NOT DETECT); Human Metapneumovirus Not Detected (NOT DETECT); Human Rhinovirus/Enterovirus Not Detected (NOT DETECT); Influenza A Not Detected (NOT DETECT); Influenza A H1 Not Detected (NOT DETECT); Influenza A H1-2009 Not Detected (NOT DETECT); Influenza A H3 Not Detected (NOT DETECT); Influenza B Not Detected (NOT DETECT); Mycoplasma Pneumoniae Not Detected (NOT DETECT); Parainfluenza Virus Type 1 Not Detected (NOT DETECT); Parainfluenza Virus Type 2 Not Detected (NOT DETECT); Parainfluenza Virus Type 3 Not Detected (NOT DETECT); Parainfluenza Virus Type 4 Not Detected (NOT DETECT); Respiratory Syncytial Virus A Not Detected (NOT DETECT); Respiratory Syncytial Virus B Not Detected (NOT DETECT); SARS-COV-2 Detected (NOT DETECT)
[2021-02-08 01:34] LABS: Glucose Urine UA Norm (Normal); Ketones Urine 2+ (Negative); Protein Urine 2+ (Negative); Specific Gravity, Urine 1.025 (1.005-1.030); Urine Appearance Clear (CLEAR); Urine Color Yellow (Yellow); pH Urine 5 (5-7)
[2021-02-08 01:35] LABS: Add Urine Microscopic? YES; Bilirubin Urine 1+ (Negative); Blood Urine 2+ (Negative); Leukocyte Esterase Urine Negative (Negative); Nitrate Urine Negative (Negative); Urobilinogen Urine 1 mg/dL (Negative)
[2021-02-08] MEDS: dexamethasone 4 mg/mL INJ 8 MG IVP (01:35)
[2021-02-08] MEDS: doxycycline 100 mg Tablet PO (01:36)
[2021-02-08 01:42] LABS: Add Urine Culture? Yes; Bacteria Urine 1+ /hpf; Fine Granular Casts Urine 0-4 /lpf; Hyaline Casts Urine 0-4 /lpf; Mucus Urine 2+ /hpf; Squamous Epithelial Cell Urine 0-4 /hpf (0-5); WBC Urine 0-4 /hpf (0-5)
[2021-02-08 02:05] VITALS: BP 147/73; PULSE 89; RESP 16; O2SAT 99
--- NOTE | 2021-02-08 02:27 | ED_ITS ---
HPI - SOB/Dyspnea General: Chief Complaint: Shortness of Breath/Dyspnea Stated Complaint: cough, congestion, dizziness, fever Time Seen by Provider: 02/07/21 22:17 History of Present Illness: HPI Narrative: 65-year-old gentleman who states he has been sick about 9 or 10 days. He is head progressive shortness of breath with cough. He has posttussive emesis as well. He notes that he has not been able to keep much down and the last couple of days. He denies significant fever. He does not use oxygen at home. MD elicited complaint: shortness of breath and cough Pertinent past history: other Onset (ago): day(s) Context: recent illness Timing: constant and progressively worsening Severity: moderate Associated symptoms: Reports chest congestion, cough, nausea and vomiting (Posttussive); Deny abdominal pain, chest pain, diaphoresis or fever(s) Treatment prior to arrival: none Review of Systems Const: Denies: fever(s) or diaphoresis Card: Denies: chest pain Resp: Reports: chest congestion GI: Reports: nausea and vomiting (Posttussive); Denies: abdominal pain PFSH ED PFSH: Medical History Atherosclerosis of coronary artery Systolic congestive heart failure, NYHA class 1 Surgical History Presence of stent in LAD coronary artery Family History Mother Diabetes Father CAD (coronary artery disease) Sister CAD (coronary artery disease) Epilepsy Crohn's disease Physical Exam Const: COMMON NORMALS: no acute distress, patient oriented x3 and alert Eye: COMMON NORMALS: Equal, round and reactive pupils present and EOMs intact bilaterally PUPIL: Yes Equal, round and reactive pupils present Chest: COMMONS NORMALS: normal inspection of the chest Resp: COMMON NORMALS: normal respiratory effort, No use of accessory muscles and clear to auscultation bilaterally AUSCULTATION: clear to auscultation bilaterally Cardio: COMMON NORMALS: regular rate and regular rhythm RATE: regular rate RHYTHM: regular rhythm GI: COMMON NORMALS: Normal to inspection, nondistended, normoactive bowel sounds present and Soft to palpation PALPATION: Yes Soft to palpation Neuro: COMMON NORMALS: patient oriented x3 SENSORIUM/ORIENTATION: Yes alert Course Vital Signs: Vital signs: Vital Signs Temperature 99.0 F 02/07/21 16:06 Pulse Rate 89 02/08/21 02:05 Respiratory Rate 16 02/08/21 02:05 Blood Pressure 147/73 02/08/21 02:05 Pulse Oximetry 99 02/08/21 02:05 MDM - SOB/Dyspnea MDM Narrative: Medical decision making narrative: 65-year-old gentleman with shortness of breath and cough. He tested positive for COVID-19 in the ER. His chest x-ray only shows some basilar atelectasis. His laboratory looks unre markable save an elevated BUN likely from prerenal azotemia. He is given a liter of fluid here. He is hypoxic in the ER. Sats are 87 to 88% on room air. He is placed on oxygen with improvement. He feels better on oxygen. He is essentially too far out to receive monoclonal antibody infusion, and is requiring oxygen now. He was given the option of admission, but chooses to go home on steroids, antibiotic coverage and oxygen. We will treat his symptoms as well Lab Data: Labs: Lab Results 02/07/21 02/07/21 02/07/21 19:01 19:01 23:16 WBC 5.8 10^3/uL 10^3/ uL (4.0-10.0) RBC 4.90 10^6/uL 10^6 /uL (4.1-5.3) Hgb 14.5 g/dL g/dL (11.7-16.6) Hct 42.5 % % (42.0-52.0) MCV 86.7 fl fl (80-94) MCH 29.6 pg pg (28.0-34.0) MCHC 34.1 g/dL g/dL (30.0-36.0) RDW 11.7 % L % (12.1-15.1) Plt Count 146 10^3/cmm 10^3 /cmm (130-400) MPV 10.3 fL fL (7.4-10.4) Neut % (Auto) 85.9 % % Lymph % (Auto) 10.2 % % Victoria % (Auto) 3.4 % % Eos % (Auto) 0.0 % % Baso % (Auto) 0.2 % % Neut # (Auto) 4.99 10^3/uL 10^3 /uL (1.8-7.7) Lymph # (Auto) 0.6 10^3/uL L 10^ 3/uL (0.8-4.8) Victoria # (Auto) 0.2 10^3/uL 10^3/ uL (0.2-0.9) Eos # (Auto) 0.0 10^3/uL 10^3/ uL (0.0-0.8) Baso # (Auto) 0.0 10^3/uL 10^3/ uL (0.0-0.1) Nucleated RBC % (a uto) 0 % % Nucleated RBCs # 0.0 /100WBC /100W BC Sodium 136 mmol/L mmol/L (136-145) Potassium 4.2 mmol/L mmol/L (3.5-5.1) Chloride 97 mmol/L L mmol/ L (98-107) Carbon Dioxide 24 mmol/L mmol/L (22-29) Anion Gap 19.2 H (5-19) BUN 33 mg/dL H mg/dL (8-23) Creatinine 1.0 mg/dL mg/dL (0.7-1.2) GFR Calculation 75.2 mL/min L mL/ min (90-130) Glucose 114 mg/dL mg/dL (65-115) Calculated Osmolal ity 290 mOsm/kg mOsm/ kg (285-295) Calcium 8.5 mg/dL mg/dL (8.5-10.5) Total Bilirubin 0.6 mg/dL mg/dL (0.15-1.2) AST 25 U/L U/L (0-40) ALT 19 U/L U/L (0-41) Alkaline Phosphata se 64 IU/L IU/L (40-130) Total Protein 7.7 g/dL g/dL (6.6-8.7) Albumin 4.3 g/dL g/dL (3.5-5.2) Globulin 3.4 g/dL g/dL (1.3-4.6) Lipase 53 U/L U/L (13-60) Urine Color Urine Appearance Urine pH Ur Specific Gravit y Urine Protein Urine Glucose (UA) Urine Ketones Urine Blood Urine Nitrate Urine Bilirubin Urine Urobilinogen Ur Leukocyte Tana ase Urine RBC Urine WBC Ur Squamous Epith Cells Amorphous Sediment Urine Bacteria Hyaline Casts Fine Granular Cast s Urine Mucus Coronavirus 229E ( PCR) Not detected (NOT DETECT) SARS-CoV-2 (PCR) Detected A (NOT DETECT) 02/08/21 00:29 WBC RBC Hgb Hct MCV MCH MCHC RDW Plt Count MPV Neut % (Auto) Lymph % (Auto) Victoria % (Auto) Eos % (Auto) Baso % (Auto) Neut # (Auto) Lymph # (Auto) Victoria # (Auto) Eos # (Auto) Baso # (Auto) Nucleated RBC % (a uto) Nucleated RBCs # Sodium Potassium Chloride Carbon Dioxide Anion Gap BUN Creatinine GFR Calculation Glucose Calculated Osmolal ity Calcium Total Bilirubin AST ALT Alkaline Phosphata se Total Protein Albumin Globulin Lipase Urine Color Yellow (Yellow) Urine Appearance Clear (CLEAR) Urine pH 5 (5-7) Ur Specific Gravit y 1.025 (1.005-1.030) Urine Protein 2+ H (Negative) Urine Glucose (UA) Norm (Normal) Urine Ketones 2+ H (Negative) Urine Blood 2+ H (Negative) Urine Nitrate Negative (Negative) Urine Bilirubin 1+ H (Negative) Urine Urobilinogen 1 mg/dL H mg/dL (Negative) Ur Leukocyte Tana ase Negative (Negative) Urine RBC 10-15 /hpf H /hpf (0-2) Urine WBC 0-4 /hpf H /hpf (0-5) Ur Squamous Epith Cells 0-4 /hpf H /hpf (0-5) Amorphous Sediment Not Reportable Urine Bacteria 1+ /hpf H /hpf (NONE) Hyaline Casts 0-4 /lpf H /lpf Fine Granular Cast s 0-4 /lpf H /lpf Urine Mucus 2+ /hpf /hpf Coronavirus 229E ( PCR) SARS-CoV-2 (PCR) Discharge Plan Discharge Patient Disposition: Home Clinical Impression: COVID-19 Acute bronchitis Qualifiers: Bronchitis organism: unspecified organism Qualified Code(s): J20.9 - Acute bronchitis, unspecified Condition: Stable Prescriptions: New dexamethasone 6 mg tablet 6 mg PO DAILY Qty: 5 RF: 0 promethazine-codeine 6.25-10 mg/5 mL syrup 5 ml PO Q6H PRN (Reason: cough) Qty: 118 RF: 0 doxycycline hyclate 100 mg tablet 100 mg PO BID 7 Days Qty: 14 RF: 0 No Action aspirin 81 mg tablet,chewable 81 mg PO DAILY Qty: 90 RF: 4 atorvastatin 40 mg tablet 40 mg PO BEDTIME Qty: 90 RF: 3 clopidogrel 75 mg tablet 75 mg PO DAILY Qty: 90 RF: 4 Lasix 20 mg tablet 20 mg PO QAM Qty: 90 RF: 4 lisinopril 2.5 mg tablet 2.5 mg PO DAILY Qty: 90 RF: 4 potassium chloride 10 mEq tablet extended release 10 meq PO DAILY Qty: 90 RF: 4 carvedilol 3.125 mg tablet 3.125 mg PO BID Qty: 180 RF: 3 multivitamin Tablet 1 tab PO DAILY RF: 0 Zyrtec 10 mg Tablet 10 mg PO DAILY PRN (Reason: Allergy Symptoms) RF: 0 Discharge Orders: Discharge ED (Routine); Ordered 02/08/21 Ordered By: Tu Powell Other Ambulatory Orders: DME: Oxygen (Order) Location: None Selected Ordered By: Tu Powell Activity Restrictions/Additional Instructions: Return for worsening shortness of breath despite treatment, vomiting liquids or medications despite treatment, any other concerning symptoms. Coding Level of Care Code ED Trolley Worker for Frankie Galvez
== END 2021-02-08 02:10 | disposition home or self-care (01) ==
PROVIDERS: Emergency Medicine; Emergency Provider Emergency Medicine
DX: U07.1 COVID-19 (principal); J40 Bronchitis, not specified as acute or chronic; Z79.82 Long term (current) use of aspirin; Z79.02 Long term (current) use of antithrombotics/antiplatelets; I50.20 Unspecified systolic (congestive) heart failure; I25.10 Atherosclerotic heart disease of native coronary artery without angina pectoris
CPT/HCPCS: 71045; 80053; 81001; 83690; 85025; 87086; 87635; 96361; 96374; 99284; J1100; J7030

== ENCOUNTER → 2021-06-16 10:04 | Outpatient (BNVA) | payer MEDICARE, BC, MEDICAID, SELFPAY | PROVIDERS: Visit Provider Internal Medicine Cardiovascular Disease | DX: I50.22 Chronic systolic (congestive) heart failure (principal); I25.10 Atherosclerotic heart disease of native coronary artery without angina pectoris; I25.5 Ischemic cardiomyopathy; R03.0 Elevated blood-pressure reading, without diagnosis of hypertension; E78.5 Hyperlipidemia, unspecified; Z87.891 Personal history of nicotine dependence | CPT/HCPCS: 99214; 99215 ==

== ENCOUNTER 2021-06-17 10:10 | Outpatient (CLI) | payer MEDICARE, BC, MEDICAID, SELFPAY ==
[2021-06-17 12:02] LABS: Alanine Aminotransferase 29 U/L (0-41); Albumin Level 4.4 g/dL (3.5-5.2); Alkaline Phosphatase 91 IU/L (40-130); Anion Gap 16.1 (5-19); Aspartate Amino Transferase 18 U/L (0-40); Blood Urea Nitrogen 21 mg/dL (8-23); Calcium 9.4 mg/dL (8.5-10.5); Carbon Dioxide 27 mmol/L (22-29); Chloride 103 mmol/L (98-107); Chol HDL Ratio 4.44 mg/dL (1.0-5.00); Cholesterol 173 mg/dL (0-200); Globulin 3.2 g/dL (1.3-4.6); Glucose 106 mg/dL (65-115); HDL Cholesterol 39 mg/dL (60-100); LDL Cholesterol Calculated 84 mg/dL (50-129); LDL HDL Ratio 2.15 RATIO (0.00-3.22); NT Pro B Type Natriuretic Pept 257 pg/mL (0-125); Osmolality Calculated 297 mOsm/kg (285-295); Potassium 4.1 mmol/L (3.5-5.1); Sodium 142 mmol/L (136-145); Total Bilirubin 0.5 mg/dL (0.15-1.2); Total Protein 7.6 g/dL (6.6-8.7); Triglycerides 251 mg/dL (0-150)
== END 2021-06-17 10:11 | disposition home or self-care (01) ==
LOC: RAD 10:15 → LAB 10:43
PROVIDERS: Visit Provider Internal Medicine Cardiovascular Disease
DX: R06.02 Shortness of breath (principal); I50.22 Chronic systolic (congestive) heart failure; I50.33 Acute on chronic diastolic (congestive) heart failure; E78.5 Hyperlipidemia, unspecified
CPT/HCPCS: 36415; 80048; 80061; 80076; 83880

== ENCOUNTER → 2021-12-22 11:39 | Outpatient (BNVA) | payer MEDICARE, OTHER, BC, MEDICAID, SELFPAY | PROVIDERS: Visit Provider Internal Medicine Cardiovascular Disease | DX: E78.5 Hyperlipidemia, unspecified (principal); M25.519 Pain in unspecified shoulder; R06.02 Shortness of breath; I25.5 Ischemic cardiomyopathy; I50.20 Unspecified systolic (congestive) heart failure; N18.9 Chronic kidney disease, unspecified; I25.10 Atherosclerotic heart disease of native coronary artery without angina pectoris; I11.0 Hypertensive heart disease with heart failure; I50.22 Chronic systolic (congestive) heart failure | CPT/HCPCS: 80048; 80061; 80076; 82550; 83880; 84443; 99215 ==

== ENCOUNTER → 2022-01-13 10:01 | Outpatient (BNVA) | payer MEDICARE, OTHER, BC, MEDICAID, SELFPAY | PROVIDERS: Visit Provider Nurse Practitioner Family | DX: I50.22 Chronic systolic (congestive) heart failure (principal); E78.5 Hyperlipidemia, unspecified | CPT/HCPCS: 99214 ==

== ENCOUNTER 2022-01-20 13:28 | Outpatient (CLI) | payer MEDICARE, OTHER, BC, MEDICAID, SELFPAY ==
[2022-01-20 16:24] LABS: Anion Gap 11.9 (5-19); Blood Urea Nitrogen 17 mg/dL (8-23); Calcium 9.2 mg/dL (8.5-10.5); Carbon Dioxide 28 mmol/L (22-29); Chloride 105 mmol/L (98-107); Glucose 106 mg/dL (65-115); Osmolality Calculated 294 mOsm/kg (285-295); Potassium 3.9 mmol/L (3.5-5.1); Sodium 141 mmol/L (136-145)
== END 2022-01-20 13:29 | disposition home or self-care (01) ==
LOC: LAB 13:31
PROVIDERS: Visit Provider Nurse Practitioner Family
DX: I50.22 Chronic systolic (congestive) heart failure (principal)
CPT/HCPCS: 36415; 80048

== ENCOUNTER 2022-01-31 09:09 | Outpatient (CLI) | payer MEDICARE, OTHER, BC, MEDICAID, SELFPAY ==
--- NOTE | 2022-01-31 10:02 | NMCV_ITS ---
NM card bld pool r or s*[id number] Logan Lee Age: 66 Gender: M : 1955 Exam Date: 01/31/2022 10:00 Ordering Phys: Peter Albright MD ([email or web address]) Technologist: YAMIL Treadwell Exam Location: [facility] Indications: ISCHEMIAC CARDIOMYOPATHY Camera Used: [employer] Protocol: three view gated blood pool study Technical Image Quality: Good Dose: Admin Site: Administered By: [id number] Tagged RBCs: 26.1 IV - Right YAMIL Domínguez Antecubital PYP: EJECTION FRACTION: Automatic LV EF: 46 Rest RV EF: Manual LV EF: FINDINGS LV ejection fraction is estimated to be 46%. LV wall motion analysis revealing hypokinesia of the inferior and apical region CONCLUSIONS 1. LVEF of 46% 2. Segmental wall motion analysis revealing hypokinesia of the inferior wall and the LV apex Dr Peter Albright MD FACC (Electronically Signed) Final Date: 02 February 2022 11:13 S
== END 2022-01-31 09:10 | disposition home or self-care (01) ==
LOC: RAD 09:11
PROVIDERS: Visit Provider Internal Medicine Cardiovascular Disease
DX: I25.5 Ischemic cardiomyopathy (principal)
CPT/HCPCS: 78472; A9560

== ENCOUNTER → 2022-04-21 11:05 | Outpatient (BNVA) | payer MEDICARE, OTHER, BC, MEDICAID, SELFPAY | PROVIDERS: Visit Provider Internal Medicine Cardiovascular Disease | DX: E78.5 Hyperlipidemia, unspecified (principal); I25.10 Atherosclerotic heart disease of native coronary artery without angina pectoris; I25.5 Ischemic cardiomyopathy; I10 Essential (primary) hypertension; Z87.891 Personal history of nicotine dependence | CPT/HCPCS: 36415; 80061; 80076; 83721; 99214 ==

== ENCOUNTER → 2024-03-28 16:21 | Outpatient (BNVA) | payer MEDICARE, OTHER, MEDICAID, SELFPAY | PROVIDERS: Visit Provider Internal Medicine Cardiovascular Disease | DX: I11.0 Hypertensive heart disease with heart failure (principal); I50.22 Chronic systolic (congestive) heart failure; I25.5 Ischemic cardiomyopathy; E78.5 Hyperlipidemia, unspecified | CPT/HCPCS: 99214 ==

== ENCOUNTER 2024-04-01 08:27 | Outpatient (CLI) | payer MEDICARE, OTHER, MEDICAID, SELFPAY ==
[2024-04-01 09:21] LABS: Alanine Aminotransferase 16 U/L (0-41); Albumin Level 4.3 g/dL (3.5-5.2); Alkaline Phosphatase 70 U/L (40-130); Anion Gap 17.2 (5-19); Aspartate Amino Transferase 14 U/L (0-40); Blood Urea Nitrogen 24 mg/dL (8-23); Carbon Dioxide 25 mmol/L (22-29); Chloride 103 mmol/L (98-107); Chol HDL Ratio 6.47 mg/dL (1.0-5.00); Cholesterol 220 mg/dL (0-200); Globulin 2.8 g/dL (1.3-4.6); Glomerular Filtration Rate 66.8 mL/min (90-130); Glucose 121 mg/dL (65-115); HDL Cholesterol 34 mg/dL (60-100); LDL Cholesterol Calculated 112 mg/dL (50-129); LDL HDL Ratio 3.29 RATIO (0.00-3.22); Osmolality Calculated 297 mOsm/kg (285-295); Potassium 4.2 mmol/L (3.5-5.1); Sodium 141 mmol/L (136-145); Total Bilirubin 0.4 mg/dL (0.15-1.2); Total Protein 7.1 g/dL (6.6-8.7); Triglycerides 371 mg/dL (0-150)
== END 2024-04-01 08:28 | disposition home or self-care (01) ==
LOC: LAB 08:28
PROVIDERS: Visit Provider Internal Medicine Cardiovascular Disease
DX: E78.5 Hyperlipidemia, unspecified (principal); I25.5 Ischemic cardiomyopathy
CPT/HCPCS: 36415; 80053; 80061

== ENCOUNTER → 2024-10-01 10:33 | Outpatient (BNVA) | payer MEDICARE, OTHER, SELFPAY | PROVIDERS: Visit Provider Internal Medicine Cardiovascular Disease | DX: I25.5 Ischemic cardiomyopathy (principal); I10 Essential (primary) hypertension; E78.5 Hyperlipidemia, unspecified; Z95.5 Presence of coronary angioplasty implant and graft; Z87.891 Personal history of nicotine dependence; I42.9 Cardiomyopathy, unspecified | CPT/HCPCS: 99214 ==

== ENCOUNTER 2024-10-10 10:03 | Outpatient (CLI) | payer MEDICARE, OTHER, SELFPAY ==
[2024-10-10 11:44] LABS: Cholesterol 120 mg/dL (0-200); HDL Cholesterol 41 mg/dL (60-100); Triglycerides 212 mg/dL (0-150)
== END 2024-10-10 10:04 | disposition home or self-care (01) ==
LOC: LAB 10:06
PROVIDERS: Visit Provider Internal Medicine Cardiovascular Disease
DX: E78.5 Hyperlipidemia, unspecified (principal)
CPT/HCPCS: 36415; 80061

== ENCOUNTER 2024-10-29 08:20 | Outpatient (CLI) | payer MEDICARE, OTHER, SELFPAY | END 2024-10-29 08:21 | disposition home or self-care (01) | LOC: RAD 08:22 | PROVIDERS: Visit Provider Internal Medicine Cardiovascular Disease | DX: I42.9 Cardiomyopathy, unspecified (principal) | CPT/HCPCS: 93306 ==